=== PATIENT | female | born 1985 | race Caucasian/White ===

== ENCOUNTER → 2016-05-27 | Outpatient (CLI) | payer BC ==
[~2016-05-27] MED LIST: IBUP-1050 PO; IBUP1CAP PO; OXYC-57 PO
== END | disposition home or self-care (01) ==
LOC: C.LAB 15:30
PROVIDERS: ATTEND Obstetrics & Gynecology
DX: Z33.1 Pregnant state, incidental (principal)

== ENCOUNTER 2016-05-29 12:43 | Emergency (ER) | payer BC ==
[~2016-05-29] VITALS: Ht 175.3 cm; Wt 83.1 kg
[2016-05-29 13:02] VITALS: Ht 175.3 cm; Wt 83.1 kg
[2016-05-29] MEDS ORDERED: SODIUM CHLORIDE 0.9% 1000ML 1,000 ML IV ONE (13:18)
[2016-05-29] MEDS ORDERED: SODIUM CHLORIDE 0.9% 1000ML 1,000 ML IV STA (13:18)
--- NOTE | 2016-05-29 13:31 | EMERGENCY ROOM VISIT NOTE ---
History Report prepared by Hunter: Mike Yi Under the Supervision of: Dr. Familia Castillo M.D. First contact with patient: 13:09 Chief Complaint: REFERRED BY DOCTOR Stated Complaint: POSS ECTOPIC , SENT BY DR ESTEVEZ History of Present Illness The patient is a 31 year old female who presents to the Emergency Room with complaints of possible ectopic . The patient initially had some spotting which has now resolved. She has not passed any clots or tissues. She no longer has any bleeding. Her HCG numbers have been reducing. The patient is unsure about how far along she is. Last week, she discovered that she was . The patient has a normal menstrual period on May 14. She was evaluated at her OB-GOLD MINER's office today where she received an exam and an ultrasound. On ultrasound, there was nothing seen in the uterus. There was an abnormal finding concerning the left ovary but the patient is not unsure about the exact results. She currently denies any pain. She denies any trauma or injury, abdominal pain, vomiting, diarrhea, or any other complaints. The patient 's blood type is B negative. The patient is not on any blood thinners. Source of History: patient Position: other (global) Symptom Intensity: No pain currently Quality: other (possible ectopic ) Associated Symptoms: No abdominal pain, No diarrhea, No vomiting Review of Systems See HPI for pertinent positives & negatives. A total of 10 systems reviewed and were otherwise negative. Past Medical & Surgical Medical Problems: (1) Gestational diabetes (2) contractions (3) Spontaneous rupture of amiotic membranes Surgical Problems: (1) History of cholecystectomy Old medical records were reviewed. Nurse's notes were reviewed and I agree with. Family History Diabetes mellitus FH: heart disease FH: lung disease FHx: cancer FHx: gallbladder disease Hypertension Kidney disease Kidney stones Social History Smoking Status: Never Smoker Alcohol Use: none Marital Status: Housing Status: lives with family Current/Historical Medications No Active Prescriptions or Reported Meds Allergies Coded Allergies: No Known Allergies (Verified , 05/29/16) Physical Exam Vital Signs Date Time Temp Pulse Resp B/P Pulse Ox O2 Delivery O2 Flow Rate FiO2 05/29/16 16:00 37 83 18 140/78 99 Room Air 05/29/16 15:15 84 16 108/73 99 Room Air 05/29/16 13:02 37.1 99 18 129/66 97 Room Air Physical Exam General: Non-ill appearing, young female, in no acute distress. HEENT: Normal cephalic atraumatic. Pupils are equal round and reactive to light. Extraocular movements are intact. Oropharynx is pink with moist mucous membranes. No swelling of the mouth lips or tongue. Neck: Supple with a midline trachea. No meningeal signs or stiffness, no JVD or bruits. No Stridor. Chest: Clear to auscultation bilaterally. No wheezes or rhonchi. No increased work of breathing. Heart: regular rate and rhythm. Abdomen: Soft nontender, nondistended without rebound guarding or rigidity. Extremities: No cyanosis clubbing or edema. No calf tenderness or assymetry Spine/Back. Non tender to palpation. No CVA tenderness Skin: Good turgor without rashes. Neurologic exam: Cranial nerves two through 12 are intact. Motor and sensation are intact and symmetrical throughout. Medical Decision & Procedures Laboratory Results 05/29/16 13:46 Red Blood Count 4.67, Mean Corpuscular Volume 85.2, Mean Corpuscular Hemoglobin 29.6, Mean Corpuscular Hemoglobin Concent 34.7, Mean Platelet Volume 9.7, Neutrophils (%) (Auto) 60.1, Lymphocytes (%) (Auto) 26.4, Monocytes (%) (Auto) 9.7, Eosinophils (%) (Auto) 3.0, Basophils (%) (Auto) 0.4, Neutrophils # (Auto) 6.51, Lymphocytes # (Auto) 2.86, Monocytes # (Auto) 1.05, Eosinophils # (Auto) 0.32, Basophils # (Auto) 0.04 05/29/16 13:46 Test 05/29/16 13:46 White Blood Count 10.82 K/uL (4.8-10.8) Red Blood Count 4.67 M/uL (4.2-5.4) Hemoglobin 13.8 g/dL (12.0-16.0) Hematocrit 39.8 % (37-47) Mean Corpuscular Volume 85.2 fL (80-100) Mean Corpuscular Hemoglobin 29.6 pg (25-34) Mean Corpuscular Hemoglobin Concent 34.7 g/dl (32-36) Platelet Count 231 K/uL (130-400) Mean Platelet Volume 9.7 fL (7.4-10.4) Neutrophils (%) (Auto) 60.1 % Lymphocytes (%) (Auto) 26.4 % Monocytes (%) (Auto) 9.7 % Eosinophils (%) (Auto) 3.0 % Basophils (%) (Auto) 0.4 % Neutrophils # (Auto) 6.51 K/uL (1.4-6.5) Lymphocytes # (Auto) 2.86 K/uL (1.2-3.4) Monocytes # (Auto) 1.05 K/uL (0.11-0.59) Eosinophils # (Auto) 0.32 K/uL (0-0.5) Basophils # (Auto) 0.04 K/uL (0-0.2) RDW Standard Deviation 40.8 fL (36.4-46.3) RDW Coefficient of Variation 13.3 % (11.5-14.5) Immature Granulocyte % (Auto) 0.4 % Immature Granulocyte # (Auto) 0.04 K/uL (0.00-0.02) Anion Gap 9.0 mmol/L (3-11) Est Creatinine Clear Calc Drug Dose 115.6 ml/min Estimated GFR () 111.3 Estimated GFR (Non- 96.0 BUN/Creatinine Ratio 16.3 (10-20) Calcium Level 8.8 mg/dl (8.5-10.1) Human Chorionic Gonadotropin, Quant 348 mIU/mL Laboratory studies as stated above per my review. Medications Administered Medications (Trade) Dose Ordered Sig/Navi Route Start Time Stop Time Status Last Admin Dose Admin Sodium Chloride 1,000 ml @ 999 mls/hr Q1H1M STAT IV 05/29/16 13:18 05/29/16 14:18 DC 05/29/16 13:55 999 MLS/HR Sodium Chloride (Nss 1000ml) 1,000 ml @ 200 mls/hr Q5H ONCE IV 05/29/16 13:18 05/29/16 18:17 05/29/16 15:08 200 MLS/HR ED Course 1309: Past medical records reviewed. The patient was evaluated in room A02, and a complete history and physical examination were performed. 1318: Sodium Chloride 1000 ml @ 200 mls/hr IV, Sodium Chloride 1000 ml @ 999 mls /hr IV 1352: I reevaluated the patient who is resting comfortably. 1423: Upon reevaluation, the patient is doing well. I discussed the results and treatment plan with the patient. She verbalized agreement of the treatment plan. I discussed the patient's case with Dr. Liu, OB-[facility]OLD [facility]ER with [facility]. She will be evaluated for further management. Medical Decision Differential diagnosis includes but is not limited to ectopic , anemia , miscarriage, electrolyte or metabolic abnormality. This patient comes in as described above. She was sent over from her DATABASE REPORT WRITER office for concern for possible ectopic . Her Quant HCG on Saturday was 700 which was apparently down from 1999. They did ultrasound the office and did not see any intrauterine products. There is a left adnexal mass and fluid was concern for possible ectopic. They sent her here for repeat labs and consult OB here for possible surgery. The patient looks well and has been hemodymically stable on exam. IV access established was typed and crossed and multiple blood testing was obtained. She was reassessed frequently.. She has no significant anemia. No electrode or metabolic abnormalities. Her quantitative hCG is down to 345. She does tell me that she is Rh- and may ultimately need RhoGAM when her blood work comes back. I did consult Dr. Liu. who did come see her in the ER and is going to take her to the operating room for a presumed ectopic Consults Time Called: [id number] Consulting Physician: Dr. Liu, OB[facility]OLD [facility]ER with [facility] Returned Call: [phone] I discussed the patient's case with Dr. Liu, OB-GOLD [facility]ER with [facility]. Impression Primary Impression: Ectopic Scribe Attestation The scribe's documentation has been prepared under my direction and personally reviewed by me in its entirety. I confirm that the note above accurately reflects all work, treatment, procedures, and medical decision making performed by me. Departure Information Dispostion Other (OB-GOLD MINER) Prescriptions No Active Prescriptions or Reported Meds Referrals Canan. Dash MD (PCP) Patient Instructions My [facility]
[2016-05-29 13:58] LABS: BASO % 0.4 %; BASO ABS # 0.04 K/uL (0-0.2); COMPLETE YES; HEMATOCRIT 39.8 % (37-47); IG% 0.4 %; LYMPH % 26.4 %; LYMPH ABS # 2.86 K/uL (1.2-3.4); MEAN CELL VOLUME 85.2 fL (80-100); MEAN CORPUSCULAR HEMOGLOBIN 29.6 pg (25-34); MEAN CORPUSCULAR HGB CONC 34.7 g/dl (32-36); MEAN PLATELET VOLUME 9.7 fL (7.4-10.4); MONO % 9.7 %; NEUT % 60.1 %; PLATELET COUNT 231 K/uL (130-400); RED BLOOD COUNT 4.67 M/uL (4.2-5.4); WHITE BLOOD COUNT 10.82 K/uL (4.8-10.8)
[2016-05-29 14:18] LABS: BUN/CREATININE RATIO 16.3 (10-20); CALCIUM 8.8 mg/dl (8.5-10.1); CREATININE 0.82 mg/dl (0.60-1.20); POTASSIUM 3.8 mmol/L (3.5-5.1)
[2016-05-29 15:15] VITALS: O2SAT 99
[2016-05-29] MEDS ORDERED: SUCCINYLCHOLINE CHLORIDE 20 MG/ML 10 ML VIAL IV ONE (15:42)
[2016-05-29] MEDS ORDERED: PHENYLEPHRINE HCL INJ 10 MG/ML VIAL ONE (15:42)
[2016-05-29] MEDS ORDERED: GLYCOPYRROLATE INJ 0.2 MG/ML VIAL ONE (15:42)
[2016-05-29] MEDS ORDERED: ONDANSETRON INJ 2 MG/ML 2 ML VIAL ONE ×2 (15:42→20:14)
[2016-05-29] MEDS ORDERED: DEXAMETHASONE SOD INJ 4 MG/ML VIAL ONE (15:42)
[2016-05-29] MEDS ORDERED: EpHEDrine SULFATE INJ 50 MG/ML AMP ONE (15:42)
[2016-05-29] MEDS ORDERED: LIDOCAINE HCL 2% 2 ML VIAL (20MG/ML) ONE ×2 (15:42→17:56)
[2016-05-29] MEDS ORDERED: PROPOFOL IV EMULSION 10 MG/ML 20 ML VIAL IV ONE (15:42)
[2016-05-29] MEDS ORDERED: ROCURONIUM BROMIDE 10 MG/ML 5 ML VIAL ONE (15:42)
[2016-05-29] MEDS ORDERED: NEOSTIGMINE METHYLSULFATE 5 MG/5 ML SYR ONE (15:42)
[2016-05-29] MEDS ORDERED: MIDAZOLAM HCL 1 MG/ML 2ML VIAL ONE (15:43)
[2016-05-29] MEDS ORDERED: FENTANYL CITRATE INJ 50 MCG/1 ML 2 ML VIAL ONE ×3 (15:43→18:28)
--- NOTE | 2016-05-29 15:54 | HISTORY & PHYSICAL EXAMINATION ---
DATE OF ADMISSION: 05/29/2016 HISTORY OF PRESENT ILLNESS: The patient is a 31-year-old , last menstrual period was May 14. The patient was seen in the [facility] office where she was scheduled to have an IUD placement for contraception. test was positive. The patient was therefore followed with serial HCGs. Her titers were rising and suddenly began to decline but she had abdominal pain and bleeding so an ultrasound was done today as a followup and the ultrasound in the office showed a 4.1 x 2.7 x 3.6 cm heterogeneous structure adjacent to the left ovary and suspicious for ectopic . There is suspected fluid in the pelvis as well. The patient complains of very mild abdominal discomfort. She did have some vaginal bleeding over the weekend which has improved is not present this morning. She has no shortness of breath, no chills, no diarrhea, no shoulder pain. The patient was sent to the Emergency Room for evaluation. She had a discussion with Dr. Montes who saw her this morning because of the suspected blood in the pelvis, methotrexate is not recommended. She had agreed to undergo laparoscopy for removal of suspected ectopic in the left adnexa. On arrival at the Emergency Room, the patient is stable. She had no shortness of breath, no chills, no fever. I have discussed findings with patient. We discussed medical treatment as well as surgical treatment once again because of suspected fluid in the pelvis. We do not at this moment think that she is a candidate for methotrexate. The patient has agreed to proceed with laparoscopy. PAST MEDICAL HISTORY: The patient has a history of cholecystitis. PAST SURGICAL HISTORY: The patient had a cholecystectomy. ALLERGIES: No known drug allergies. SOCIAL HISTORY: The patient denies tobacco, drug or alcohol use. FAMILY HISTORY: Noncontributory. PHYSICAL EXAMINATION: GENERAL: Well-developed, well-nourished white female in no acute distress. HEART: S1, S2, regular rhythm and rate. LUNGS: Clear to auscultation bilaterally. ABDOMEN: Slightly tender on the left lower abdomen. There is no guarding, no rebound. PELVIC: Unremarkable. There is some fullness in the left adnexa. There is no blood seen in the vagina vault. No cervical motion tenderness. The patient, however, is uncomfortable during pelvic exam. EXTREMITIES: No cyanosis, clubbing or edema. ASSESSMENT AND PLAN: A 31-year-old with a suspected ectopic seen on ultrasound. We discussed medical therapy as well as surgery. The patient has agreed to proceed with operative laparoscopy. Surgery to include removal of ectopic, possible salpingo oopherectomy,cystoscopy. We discussed risks of surgery including infection, bleeding, damage to adjacent organs or structures such as the ureter, the bowel, the bladder. Consent is signed and we will proceed with surgery. GUNJAN
[2016-05-29] MEDS ORDERED: LACTATED RINGER'S 1000ML 1,000 ML IV PRN (16:17)
[2016-05-29] MEDS ORDERED: ACETAMINOPHEN 1000 MG/100 ML IV IV ONE (16:20)
[2016-05-29] MEDS ORDERED: LACTATED RINGER'S 1000ML 1,000 ML IV SCH (16:22)
[2016-05-29] MEDS ORDERED: DiphenhydrAMINE HCL 50 MG/ML VIAL IV PRN (16:30)
[2016-05-29] MEDS ORDERED: FENTANYL CITRATE INJ 50 MCG/1 ML 2 ML VIAL IV PRN (16:30)
[2016-05-29] MEDS ORDERED: ONDANSETRON INJ 2 MG/ML 2 ML VIAL IV PRN ×2 (16:30→20:00)
[2016-05-29] MEDS ORDERED: MoRPHine SULFATE 10 MG/ML CARP/VIAL IV PRN (16:30)
[2016-05-29] MEDS ORDERED: METOCLOPRAMIDE HCL INJ 5 MG/ML 2 ML VIAL IV PRN ×2 (16:30→20:00)
[2016-05-29] MEDS ORDERED: ESMOLOL HCL 10 MG/ML 10 ML VIAL ONE (18:28)
[2016-05-29] MEDS ORDERED: METHYLENE BLUE 1% 10 ML VIAL ONE (19:00)
[2016-05-29] MEDS ORDERED: BUPIVACAINE/EPINEPHRINE 0.5% MPF 1:200,000 30 ML VIAL INJ ONE (19:31)
[2016-05-29] MEDS ORDERED: SODIUM CHLORIDE 0.9% 1000ML 1,000 ML IV SCH (19:56)
[2016-05-29] MEDS ORDERED: OXYCODONE/ACETAMINOPHEN 5-325 TAB PO PRN ×2 (20:00)
[2016-05-29] MEDS ORDERED: OXYC-57 PO (20:00)
[2016-05-29] MEDS ORDERED: IBUPROFEN 600 MG TAB PO PRN (20:00)
[2016-05-29] MEDS ORDERED: KETOROLAC TROMETHAMINE 30 MG/ML VIAL IV. PRN (20:00)
--- NOTE | 2016-05-29 20:05 | Discharge Instructions ---
Discharge Instructions Admission Reason for Admission: Poss Ectopic , Sent By Dr Montes Discharge Discharge Diagnosis / Problem: same Discharge Goals Goal(s): Routine recovery after surgery Activity Recommendations Activity Limitations: as noted below Lifting Limitations: gradually increase as tolerated Exercise/Sports Limitations: until after follow-up appointment May Resume Sexual Activity: after follow-up appointment Shower/Bathe: keep incision dry Driving or Machine Use: . Instructions / Follow-Up Instructions / Follow-Up SPECIAL CARE INSTRUCTIONS: * Check temperature twice daily for one week. Report any elevation over 100.4 degrees Fahrenheit (38.0 degrees Celsius). * Call office in the next few days for return appointment. * You may experience some vaginal spotting and/or bleeding, this is normal for one or two weeks and should not alarm you. * Post-operative discomfort may consist of a sore throat, a "bloated" feeling and pain in the shoulders. These are normal symptoms which usually only last for two or three days. FOLLOW UP VISIT: Keep any scheduled doctor appointments. Current Hospital Diet Patient's current hospital diet: Discharge Diet Recommended Diet: Regular Diet Procedures Procedures Performed: Operative laparoscopy, left salingoopherectomy, removal of products of conception, cystoscopy Pending Studies Studies pending at discharge: no Medical Emergencies . Who to Call and When: Medical Emergencies: If at any time you feel your situation is an emergency, please call 911 immediately. . Non-Emergent Contact Non-Emergency issues call your: Specialist Call Non-Emergent contact if: you have a fever, your pain is not controlled, wound has increased drainage . . "Provider Documentation" section prepared by Serafin Liu. VTE Core Measure Inpt VTE Proph given/why not?: Treatment not indicated
--- NOTE | 2016-05-29 20:15 | Anesthesiology Progress Note ---
Anesthesia Post Op Note Date & Time May 29, 2016 at 20:14 Vital Signs Pain Intensity: 0 Vital Signs Past 12 Hours Date Time Temp Pulse Resp B/P Pulse Ox O2 Delivery O2 Flow Rate FiO2 05/29/16 20:05 69 16 109/73 100 Mask 10 05/29/16 19:56 36.4 84 16 112/76 96 Mask 10 05/29/16 16:00 37 83 18 140/78 99 Room Air 05/29/16 15:15 84 16 108/73 99 Room Air 05/29/16 13:02 37.1 99 18 129/66 97 Room Air Notes Mental Status: alert / awake / arousable, participated in evaluation Pt Amnestic to Procedure: Yes Nausea / Vomiting: adequately controlled Pain: adequately controlled Airway Patency, RR, SpO2: stable & adequate BP & HR: stable & adequate Hydration State: stable & adequate Anesthetic Complications: no major complications apparent Pt doing well.
--- NOTE | 2016-05-29 20:17 | [facility] Operative Report ---
Operative Report Operative Date May 29, 2016. Pre-Operative Diagnosis Ectopic Post-Operative Diagnosis Same as preoperative diagnosis Procedure(s) Performed Operative laparoscopy, left salingoopherectomy, removal of products of conception, cystoscopy Surgeon Dr. Liu Practical Nursing Instructor Surgeon(s) None Estimated Blood Loss 40ml Findings dictated Fluids (cc crystalloids) 500 Specimens a. product of conception b. left tube and ovary Drains none Complication(s) None Disposition Recovery Room / PACU I attest to the content of the Intraoperative Record and any orders documented therein. Any exceptions are noted below.
[2016-05-29] MEDS ORDERED: PERCOCET HOME PACK PO ONE (20:30)
[2016-05-29] MEDS: METOCLOPRAMIDE HCL INJ 5 MG/ML 2 ML VIAL ONE ×2 (20:30→20:56)
[2016-05-29 20:45] VITALS: BP 106/59; TEMP 36.7; O2SAT 99
[2016-05-29] MEDS ORDERED: KETOROLAC TROMETHAMINE 30 MG/ML VIAL ONE (21:00)
[2016-05-29 21:15] VITALS: BP 113/35; PULSE 68; TEMP 36.7; O2SAT 95
[2016-05-29] MEDS ORDERED: IV FLUIDS COMPLETED PRN (21:30)
[2016-05-29 21:39] VITALS: BP 108/59; PULSE 68; TEMP 36.6; O2SAT 97
--- NOTE | 2016-05-30 07:05 | OPERATIVE REPORT ---
DATE OF OPERATION: 05/29/2016 INDICATION FOR PROCEDURE: This is a 31-year-old with suspected ectopic seen in the office and sent to the Emergency Room. PREOPERATIVE DIAGNOSES: Suspected ectopic . POSTOPERATIVE DIAGNOSIS: Same. PROCEDURE: 1. Operative laparoscopy. 2. Evacuation of hemoperitoneum. 3. Removal of products of conception from the abdomen. 4. Left salpingo-oophorectomy. SURGEON: Serafin Liu MD LOT PORTER: LAINE Sevilla ESTIMATED BLOOD LOSS: 40 mL FINDINGS: Normal female escutcheon. The uterus was about 6-8 weeks' size. There was hemoperitoneum in the abdomen. The ectopic was on the left ovary. The left and right fallopian tubes appeared grossly normal. There were signs of endometriosis in the posterior cul-de-sac. The rest of the abdominal exam was unremarkable. The right adnexa appeared completely normal. SPECIMEN: 1. Products of conception. 2. Left tube and ovary. DRAINS: None. COMPLICATIONS: None. DISPOSITION: Stable to recovery room. IV FLUIDS: 500 Ml URINE: 50 mL clear urine at the end of the procedure. DESCRIPTION OF PROCEDURE: The patient was taken to the operating room where she was prepped and draped in normal sterile fashion. Timeout was called. A heavy weighted speculum was placed in the vagina. A Abdalla retractor was used to retract the anterior part of the vagina. Single tooth tenaculum was used to grab the anterior part of the cervix. A [employer] uterine manipulator was placed in the uterus to help manipulate the uterus during laparoscopy. Knox catheter was placed in the bladder. Attention was paid to the abdominal part of the procedure where an infraumbilical incision was made with a scalpel and carried down to the fascia. A Veress needle was placed through the fascia into the abdomen at a 45-degree angle while tenting up the abdomen. Intra-abdominal placement was confirmed with a water filled syringe. The abdomen was insufflated with CO2 gas to 3 liters. The Veress needle was removed. Laparoscopic trocar was placed into the abdomen at a 45-degree angle while tenting up the abdomen. This was done under direct visualization. A nonbladed trocar was used. Once inside the abdomen, the findings were as dictated above. The laparoscope was repositioned and 2 accessory laparoscopes were placed in the lower right and left quadrants respectively. These were done under direct visualization as well. The patient was placed in Trendelenburg position. Copious amount of irrigation was used to irrigate the abdomen while hemoperitoneum was evacuated. Specimen which appeared to be the ectopic was found in the deep cul-de-sac which was removed with an Endobag. The left tube and ovary was transected using the LigaSure device. There was good hemostasis at end of the procedure. More irrigation was used to irrigate the abdomen. The patient was given Methergine blue dye and cystoscopy was performed without difficulty. Both ureteral orifices were identified. There was blue urine seen jetting out of both orifices. The cystoscope was removed. Attention was paid back to the abdominal part of the operation where the 3 incision sites were closed in 2 layers, fascias were closed with 0 Vicryl and 2-0 Vicryl was used to close the subQ spaces and the skin was closed with 4-0 Monocryl. All instruments were removed from the vagina and abdomen and accounted for x2 including sponges and needles. The patient is sent to recovery in stable condition. I attest to the content of the Intraoperative Record and any orders documented therein. Any exceptio ns are noted below.
--- NOTE | 2016-05-30 07:21 | DISCHARGE SUMMARY ---
CHIEF COMPLAINT: Ectopic . HISTORY OF PRESENT ILLNESS: This is a 31-year-old G2, P1 who was found to be and upon evaluation had ectopic . She was seen in the office and sent through the ER to undergo an operative laparoscopy and left salpingo-oophorectomy. Surgery was unremarkable. Details of surgery is in the surgical note. The patient underwent surgery with cystoscopy and was discharged home the same day. PAST MEDICAL HISTORY: History of gallbladder disease. PAST SURGICAL HISTORY: History of cholecystectomy. SOCIAL HISTORY: The patient denies tobacco, drug or alcohol use. FAMILY HISTORY: Noncontributory. ALLERGIES: None. REVIEW OF SYSTEMS: Negative except as dictated in the HPI. PHYSICAL EXAMINATION: GENERAL: Well-developed, well-nourished white female in no acute distress. HEART: S1, S2, regular rhythm and rate. LUNGS: Clear to auscultation bilaterally. ABDOMEN: Nontender, nondistended. Incision clean, dry and intact. EXTREMITIES: No cyanosis, clubbing or edema. Labs and vitals at the time of discharge are stable. CONDITION ON DISCHARGE: Stable. OPERATIONS: Operative laparoscopy, left salpingo-oophorectomy, removal of products of conception from the abdomen. Cystoscopy. DISCHARGE DIAGNOSIS: Same. PLAN ON DISCHARGE: The patient is discharged home with instructions, medications and followup appointment.
== END 2016-05-29 15:50 | disposition still patient (30) ==
LOC: C.EDB 12:44 → C.EDA 15:50 → CANBEDREQ 20:04
DX: O00.20 Ovarian pregnancy without intrauterine pregnancy (principal); K66.8 Other specified disorders of peritoneum

== ENCOUNTER 2018-11-20 07:10 | Inpatient (IN) ==
[2018-11-20] MEDS ORDERED: OXYTOCIN 30 UNITS/500 ML BAG IV PRN ×3 (08:09→18:43)
--- NOTE | 2018-11-20 08:17 | History & Physical Report ---
Date of Service November 20, 2018 Assessment & Plan (1) Amniotic fluid leakin yo at 38.3 wks with SROM, not in labor VSS Afebrile FHR reassuring GBS negative Discussed expectant management vs pitocin induction/ augmentation to decrease the risk of intraamniotic infection She decided on for Pitocin All questions were answered (2) Gestational diabetes: History of Present Illness Chief Complaint: Leaking fluids Primary Care Provider: NO PCP Patient is a 33 yo at 38.3 wks who woke up at 0530 am with leaking fluids She has been leaking clear fuilds since then, confirmed with Amnisure Ctxs started after, not regular No VB/ Fever/ chills/ CP/SOB Her has been complicated by 1) GDMA2 2)Rh negative 3) Not immune to rubella Allergies Allergy/AdvReac Type Severity Reaction Status Date / Time No Known Allergies Allergy Verified 10/07/18 16:26 Home Medications Home Medications Medication Instructions Recorded Confirmed Type Plus 1 tab PO DAILY 07/02/18 11/20/18 History ferrous sulfate [iron] 325 mg PO 3XWK 10/07/18 11/20/18 History glyburide 1 mg PO ONCE HS 10/07/18 11/20/18 History omeprazole magnesium [Prilosec OTC] 20 mg PO DAILY 11/13/18 11/20/18 History Patient History Medical History Ectopic ovary Ectopic SAB x2 with D&C in 2011 Ectopic , tubal Gestational diabetes Inflammation gall bladder removed Migraine Surgical History History of dilation and curettage x2 History of unilateral fallopian tube excision Hx of removal of ovary Hx of cholecystectomy Social History Preferred Language: [place] Communication Ability: Effective Beliefs That Will Affect Care: None marital status: Current Living Situation: Spouse and Family Feels Safe at Home: Yes Safety Concerns: Feels Safe At This Time Smoking Status: Current every day smoker Tobacco Type: cigarettes Cigarettes Per Day: 10 Do You Dip or Chew Tobacco: No Second Hand Exposure: Yes Hx Alcohol Use: No Hx Substance Use: No OB History 2FT 2 SAB 1 ectopic Review of Systems All systems reviewed & are unremarkable except as noted in HPI & below Physical Exam Constitutional: WD/WN, vitals as above well developed and well nourished Comfortable Cardiovascular: RRR, no murmur, no edema Rate/Rhythm: regular rate and regular rhythm Heart Sounds: normal S1 and normal S2 Gastrointestinal (Abdomen): normal bowel sounds, soft, nontender, no hepatosplenomegaly Soft, NT, Gravid Musculoskeletal: no cyanosis or clubbing, extremities motor strength 5/5 Ext NT, no eema Genitourinary: Cervix: 3-4 cm/ 40%/ -3, ballotable Results & Data Vital Signs (Past 12 Hours) Vital Signs Temp Resp 11/20/18 07:37 37.3 C 18 11/20/18 07:27 37.3 C 18 Monitoring External Monitor Categ I Tocodynamometer Irregular ctxs q 2-4 min
[2018-11-20 08:24] LABS: Hematocrit (blood only) 32.8 % (37-47); Hemoglobin 11.3 g/dL (12.0-16.0); Mean Corpuscular Volume 85.9 fL (80-100); Mean Platelet Volume 10.5 fL (7.4-10.4); Platelet Count 304 K/uL (130-400); RDW Coefficient of Variation 13.5 % (11.5-14.5); Red Blood Count 3.82 M/uL (4.2-5.4); White Blood Count 16.42 K/uL (4.8-10.8)
[2018-11-20 08:28] LABS: Mean Corpuscular Hgb Conc 34.5 g/dL (32-36)
[2018-11-20] MEDS: LACTATED RINGER'S 1,000 ML IV PRN ×3 (08:42→13:13)
[2018-11-20 09:28] LABS: Albumin Level 2.7 gm/dl (3.4-5.0); BUN Creatinine Ratio 12.1 (10-20); Calcium 9.4 mg/dl (8.5-10.1); Creatinine Clr Calc Pharmacy 128.9 ml/min; Est GFR (African American) 118.4; Est GFR (Non-African American) 102.2; Potassium 3.9 mmol/L (3.5-5.1)
[2018-11-20 09:31] LABS: Albumin Globulin Ratio 0.6 (0.9-2); Bilirubin,Total 0.3 mg/dl (0.2-1); Globulin 4.2 gm/dl (2.5-4.0); Total Protein 6.9 gm/dl (6.4-8.2)
[2018-11-20] MEDS ORDERED: fentaNYL citrate 100 MCG/2 ML VIAL ONE ×2 (09:32→17:37)
[2018-11-20] MEDS ORDERED: fentaNYL 2MCG/ML ROPIV 1.25MG/ML 100 ML BAG EPI ONE (09:32)
[2018-11-20] MEDS ORDERED: ePHEDrine sulfate 50 MG/ML AMP ONE (09:32)
[2018-11-20] MEDS ORDERED: BUPIVACAINE 0.25% 30 ML VIAL ONE (09:32)
--- NOTE | 2018-11-20 10:16 | Anesthesiology Consultation ---
Date of Service November 20, 2018 Assessment & Plan Chart Review Chart Review: Acceptable Risk for Surgery Consults Requested none History Height/Weight Height: 5 ft 9 in Weight: 95.254 kg Allergies Allergy/AdvReac Type Severity Reaction Status Date / Time No Known Allergies Allergy Verified 10/07/18 16:26 Medications Home Medications Medication Instructions Recorded Confirmed Last Taken Plus 1 tab PO DAILY 07/02/18 11/20/18 11/14/18 ferrous sulfate [iron] 325 mg PO 3XWK 10/07/18 11/20/18 11/14/18 glyburide 1 mg PO ONCE HS 10/07/18 11/20/18 11/19/18 omeprazole magnesium [Prilosec OTC] 20 mg PO DAILY 11/13/18 11/20/18 11/19/18 Active Medications Generic Name Dose Route Start Last Admin Trade Name Freq PRN Reason Stop Dose Admin Lactated Ringer's 1,000 mls @ 150 mls/hr 11/20/18 08:30 11/20/18 10:01 Lr IV 11/22/18 08:29 150 mls/hr .Q6H40M PRN Administration L&D Protocol Protocol Past Medical History Medical History Ectopic ovary Ectopic SAB x2 with D&C in 2011 Ectopic , tubal Gestational diabetes Inflammation gall bladder removed Migraine Past Family History Family History Mother Diabetes Father Hypertension Grandmother (Maternal) Hypertension Grandmother (Paternal) Hypertension Grandfather (Paternal) Stroke Past Surgical History Surgical History History of dilation and curettage x2 History of unilateral fallopian tube excision Hx of removal of ovary Hx of cholecystectomy Social History Smoking Status: Current every day smoker tobacco type: cigarettes Smoking cigarettes per day: 10 Do You Dip or Chew Tobacco: No Hx Alcohol Use: No Hx Substance Use: No substance use type: does not use Physical Exam Vital Signs Last Vital Signs Temp 37.1 C 11/20/18 09:30 Pulse 70 11/20/18 10:12 Resp 18 11/20/18 09:47 BP 122/68 11/20/18 10:10 Pulse Ox 100 11/20/18 10:12 Testing Laboratory Results 11/20/18 08:15 11/20/18 08:35 11/20/18 08:44 POC Glucose 90
[2018-11-20] MEDS ORDERED: NALBUPHINE HCL INJ 10 MG/ML AMP IV PRN (10:18)
[2018-11-20] MEDS ORDERED: DiphenhydrAMINE HCL 50 MG/ML VIAL IV PRN (10:18)
[2018-11-20] MEDS ORDERED: fentaNYL 2MCG/ML ROPIV 1.25MG/ML 100 ML BAG EPI PRN (10:18)
[2018-11-20] MEDS ORDERED: NALOXONE HCL 0.4 MG/1 ML VIAL/CARP IV PRN (10:18)
[2018-11-20] MEDS ORDERED: NALOXONE HCL 1 MG in SODIUM CHLORIDE 0.9% 1000ML 1,000 ML IV PRN (10:18)
[2018-11-20] MEDS ORDERED: ePHEDrine sulfate 50 MG/ML AMP IV PRN (10:18)
[2018-11-20] MEDS ORDERED: ONDANSETRON INJ 2 MG/ML 2 ML VIAL IV PRN (10:48)
--- NOTE | 2018-11-20 12:38 | Obstetrical Progress Note ---
Date of Service November 20, 2018 Subjective Patient is reevaluated She is comfortable with epidural VSS Afebrile VE: 4-5 cm/ 40-50%/ -3, ballotable FHR 140's, with moderate variability and accel after exam Depew ctx q 2-4 min Plan to monitor, increase pitocin and then AROM when able Results & Data Vital Signs (Past 12 Hours) Vital Signs Temp Pulse Resp BP Pulse Ox 11/20/18 12:32 63 100 11/20/18 12:27 64 100 11/20/18 12:22 61 108/63 100 11/20/18 12:17 66 100 11/20/18 12:12 65 100 11/20/18 12:07 64 114/70 100 11/20/18 12:02 70 100 11/20/18 12:00 18 11/20/18 11:57 66 100 11/20/18 11:53 68 114/68 11/20/18 11:52 62 100 11/20/18 11:47 65 100 11/20/18 11:42 66 100 11/20/18 11:37 60 111/65 100 11/20/18 11:32 73 100 11/20/18 11:31 37.0 C 11/20/18 11:30 18 11/20/18 11:27 59 L 100 11/20/18 11:23 66 117/69 11/20/18 11:22 64 100 11/20/18 11:17 59 L 100 11/20/18 11:12 64 100 11/20/18 11:07 63 112/65 98 11/20/18 11:04 60 106/65 11/20/18 11:02 61 100 11/20/18 11:01 62 18 103/63 11/20/18 10:57 57 L 100 11/20/18 10:56 54 L 93/54 L 11/20/18 10:53 54 L 90/55 L 11/20/18 10:52 59 L 86/47 L 100 11/20/18 10:51 52 L 86/51 L 11/20/18 10:50 18 11/20/18 10:47 58 L 98 11/20/18 10:42 65 100 11/20/18 10:40 18 11/20/18 10:37 64 125/73 100 11/20/18 10:32 75 100 11/20/18 10:30 18 11/20/18 10:27 68 100 11/20/18 10:25 18 11/20/18 10:22 83 99 11/20/18 10:21 68 117/74 11/20/18 10:18 18 11/20/18 10:17 70 117/67 100 11/20/18 10:15 18 11/20/18 10:12 70 100 11/20/18 10:10 73 18 122/68 11/20/18 10:08 72 117/68 11/20/18 10:07 67 100 11/20/18 10:06 71 120/69 11/20/18 10:05 18 11/20/18 10:04 68 123/71 11/20/18 10:02 72 127/84 100 11/20/18 10:00 74 126/83 11/20/18 09:58 71 132/82 11/20/18 09:57 72 133/84 100 11/20/18 09:55 69 131/87 11/20/18 09:52 74 100 11/20/18 09:48 79 92 11/20/18 09:47 69 18 100 11/20/18 09:46 72 128/81 11/20/18 09:30 37.1 C 18 11/20/18 08:56 18 11/20/18 08:30 18 11/20/18 07:37 37.3 C 18 11/20/18 07:27 37.3 C 18
--- NOTE | 2018-11-20 14:53 | Obstetrical Progress Note ---
Date of Service November 20, 2018 Subjective Patient is reevaluated FHR had been having mild variable/ some late decels with spontaneous recovery Patient was feeling pressure VE; 5-6/ 50%/ -3, bulging bag, AROM'ed abundant clear fluid came FHR 150's no decels [place] ctxxs q2-3 min Continue to monitor closely Results & Data Vital Signs (Past 12 Hours) Vital Signs Temp Pulse Resp BP Pulse Ox 11/20/18 14:47 66 100 11/20/18 14:42 80 99 11/20/18 14:38 69 114/69 11/20/18 14:37 80 100 11/20/18 14:32 60 100 11/20/18 14:30 18 11/20/18 14:27 66 100 11/20/18 14:22 63 116/65 100 11/20/18 14:17 69 100 11/20/18 14:12 66 100 11/20/18 14:07 72 113/73 100 11/20/18 14:02 61 99 11/20/18 14:00 18 11/20/18 13:57 72 99 11/20/18 13:52 69 113/70 99 11/20/18 13:47 65 98 11/20/18 13:42 64 98 11/20/18 13:37 73 104/60 98 11/20/18 13:32 74 98 11/20/18 13:30 37.1 C 18 11/20/18 13:27 58 L 98 11/20/18 13:24 57 L 107/60 11/20/18 13:22 58 L 98 11/20/18 13:17 68 99 11/20/18 13:12 67 99 11/20/18 13:07 71 110/63 99 11/20/18 13:02 72 100 11/20/18 13:00 18 11/20/18 12:57 67 100 11/20/18 12:52 61 117/67 100 11/20/18 12:47 59 L 98 11/20/18 12:42 60 100 11/20/18 12:38 58 L 118/64 11/20/18 12:37 62 100 11/20/18 12:32 63 100 11/20/18 12:27 64 100 11/20/18 12:22 61 108/63 100 07/25/19 12:17 66 100 11/20/18 12:12 65 100 11/20/18 12:07 64 114/70 100 11/20/18 12:02 70 100 11/20/18 12:00 18 11/20/18 11:57 66 100 11/20/18 11:53 68 114/68 11/20/18 11:52 62 100 11/20/18 11:47 65 100 11/20/18 11:42 66 100 11/20/18 11:37 60 111/65 100 11/20/18 11:32 73 100 11/20/18 11:31 37.0 C 11/20/18 11:30 18 11/20/18 11:27 59 L 100 11/20/18 11:23 66 117/69 11/20/18 11:22 64 100 11/20/18 11:17 59 L 100 11/20/18 11:12 64 100 11/20/18 11:07 63 112/65 98 11/20/18 11:04 60 106/65 11/20/18 11:02 61 100 11/20/18 11:01 62 18 103/63 11/20/18 10:57 57 L 100 11/20/18 10:56 54 L 93/54 L 11/20/18 10:53 54 L 90/55 L 11/20/18 10:52 59 L 86/47 L 100 11/20/18 10:51 52 L 86/51 L 11/20/18 10:50 18 11/20/18 10:47 58 L 98 11/20/18 10:42 65 100 11/20/18 10:40 18 11/20/18 10:37 64 125/73 100 11/20/18 10:32 75 100 11/20/18 10:30 18 11/20/18 10:27 68 100 11/20/18 10:25 18 11/20/18 10:22 83 99 11/20/18 10:21 68 117/74 11/20/18 10:18 18 11/20/18 10:17 70 117/67 100 11/20/18 10:15 18 11/20/18 10:12 70 100 11/20/18 10:10 73 18 122/68 11/20/18 10:08 72 117/68 11/20/18 10:07 67 100 11/20/18 10:06 71 120/69 11/20/18 10:05 18 11/20/18 10:04 68 123/71 11/20/18 10:02 72 127/84 100 11/20/18 10:00 74 126/83 11/20/18 09:58 71 132/82 11/20/18 09:57 72 133/84 100 11/20/18 09:55 69 131/87 11/20/18 09:52 74 100 11/20/18 09:48 79 92 11/20/18 09:47 69 18 11/20/18 09:46 72 128/81 11/20/18 09:30 37.1 C 18 11/20/18 08:56 18 11/20/18 08:30 18 11/20/18 07:37 37.3 C 18 11/20/18 07:27 37.3 C 18
[2018-11-20] MEDS ORDERED: CALCIUM CARBONATE 500 MG CHEWABLE TAB PO PRN (16:39)
--- NOTE | 2018-11-20 16:44 | Obstetrical Progress Note ---
Date of Service November 20, 2018 Subjective Patient feels ctxs now, pain is 2-3/10 VE; 6/ 70%/ -2, engaged now ( had been ballotable) FHR categ I, moderate variability, categ II at mines with variable decels and minimal variability Continue to monitor closely Anticipate Results & Data Vital Signs (Past 12 Hours) Vital Signs Temp Pulse Resp BP Pulse Ox 11/20/18 16:39 69 124/75 11/20/18 16:37 70 100 11/20/18 16:32 78 100 11/20/18 16:27 78 100 11/20/18 16:22 61 107/57 L 100 11/20/18 16:17 63 100 11/20/18 16:12 61 99 11/20/18 16:08 62 121/58 L 11/20/18 16:07 60 99 11/20/18 16:02 58 L 99 11/20/18 16:00 20 11/20/18 15:57 67 100 11/20/18 15:52 64 102/58 L 99 11/20/18 15:47 71 100 11/20/18 15:42 60 100 11/20/18 15:38 62 116/61 11/20/18 15:37 65 100 11/20/18 15:32 59 L 100 11/20/18 15:30 20 11/20/18 15:27 62 100 11/20/18 15:23 66 112/68 11/20/18 15:22 66 100 11/20/18 15:17 64 100 11/20/18 15:12 71 100 11/20/18 15:07 73 112/67 100 11/20/18 15:02 67 100 11/20/18 15:00 36.6 C 20 11/20/18 14:57 65 100 11/20/18 14:53 68 118/70 11/20/18 14:52 68 100 11/20/18 14:47 66 100 11/20/18 14:42 80 99 11/20/18 14:38 69 114/69 11/20/18 14:37 80 100 11/20/18 14:32 60 100 11/20/18 14:30 18 11/20/18 14:27 66 100 11/20/18 14:22 63 116/65 100 11/20/18 14:17 69 100 11/20/18 14:12 66 100 11/20/18 14:07 72 113/73 100 11/20/18 14:02 61 99 11/20/18 14:00 18 11/20/18 13:57 72 99 11/20/18 13:52 69 113/70 99 11/20/18 13:47 65 98 11/20/18 13:42 64 98 11/20/18 13:37 73 104/60 98 11/20/18 13:32 74 98 11/20/18 13:30 37.1 C 18 11/20/18 13:27 58 L 98 11/20/18 13:24 57 L 107/60 11/20/18 13:22 58 L 98 11/20/18 13:17 68 99 11/20/18 13:12 67 99 11/20/18 13:07 71 110/63 99 11/20/18 13:02 72 100 11/20/18 13:00 18 11/20/18 12:57 67 100 11/20/18 12:52 61 117/67 100 11/20/18 12:47 59 L 98 11/20/18 12:42 60 100 11/20/18 12:38 58 L 118/64 11/20/18 12:37 62 100 11/20/18 12:32 63 100 11/20/18 12:27 64 100 11/20/18 12:22 61 108/63 100 11/20/18 12:17 66 100 11/20/18 12:12 65 100 11/20/18 12:07 64 114/70 100 11/20/18 12:02 70 100 11/20/18 12:00 18 11/20/18 11:57 66 100 11/20/18 11:53 68 114/68 11/20/18 11:52 62 100 11/20/18 11:47 65 100 11/20/18 11:42 66 100 11/20/18 11:37 60 111/65 100 11/20/18 11:32 73 100 11/20/18 11:31 37.0 C 11/20/18 11:30 18 11/20/18 11:27 59 L 100 11/20/18 11:23 66 117/69 11/20/18 11:22 64 100 11/20/18 11:17 59 L 100 11/20/18 11:12 64 100 11/20/18 11:07 63 112/65 98 11/20/18 11:04 60 106/65 11/20/18 11:02 61 100 11/20/18 11:01 62 18 103/63 11/20/18 10:57 57 L 100 11/20/18 10:56 54 L 93/54 L 11/20/18 10:53 54 L 90/55 L 11/20/18 10:52 59 L 86/47 L 100 11/20/18 10:51 52 L 86/51 L 11/20/18 10:50 18 11/20/18 10:47 58 L 98 11/20/18 10:42 65 100 11/20/18 10:40 18 11/20/18 10:37 64 125/73 100 11/20/18 10:32 75 100 11/20/18 10:30 18 11/20/18 10:27 68 100 11/20/18 10:25 18 11/20/18 10:22 83 99 11/20/18 10:21 68 117/74 11/20/18 10:18 18 11/20/18 10:17 70 117/67 100 11/20/18 10:15 18 11/20/18 10:12 70 100 11/20/18 10:10 73 18 122/68 11/20/18 10:08 72 117/68 11/20/18 10:07 67 100 11/20/18 10:06 71 120/69 11/20/18 10:05 18 11/20/18 10:04 68 123/71 11/20/18 10:02 72 127/84 100 11/20/18 10:00 74 126/83 11/20/18 09:58 71 132/82 11/20/18 09:57 72 133/84 100 11/20/18 09:55 69 131/87 11/20/18 09:52 74 100 11/20/18 09:48 79 92 11/20/18 09:47 69 18 100 11/20/18 09:46 72 128/81 11/20/18 09:30 37.1 C 18 11/20/18 08:56 18 11/20/18 08:30 18 11/20/18 07:37 37.3 C 18 11/20/18 07:27 37.3 C 18
[2018-11-20] MEDS ORDERED: HYDROCORTISONE ACETATE 25 MG SUPP PR PRN (18:43)
[2018-11-20] MEDS ORDERED: ACETAMINOPHEN 325 MG TAB PO PRN (18:43)
[2018-11-20] MEDS ORDERED: MEASLES, MUMPS & RUBELLA VIRUS VIAL SQ ONE (18:43)
[2018-11-20] MEDS ORDERED: SUPERCREAM 0.870% 15 GM JAR EXT PRN (18:43)
[2018-11-20] MEDS ORDERED: BENZOCAINE 20% AER SPR 82.5 GM CAN EXT PRN (18:43)
[2018-11-20] MEDS ORDERED: BISACODYL 10 MG SUPP PR PRN (18:43)
[2018-11-20] MEDS ORDERED: DIPHTHERIA/TETANUS/PERTUSSIS 0.5 ML SYR/VIAL IM ONE (18:43)
[2018-11-20] MEDS ORDERED: OXYCODONE/ACETAMINOPHEN 5mg/325mg TAB PO PRN (18:43)
--- NOTE | 2018-11-20 19:54 | Anesthesia Procedure Note ---
Date of Service November 20, 2018 Anesthesia Post Epidural Note Vital Signs Vital Signs: Temp Pulse Resp BP Pulse Ox 36.5 C 60 20 135/76 100 11/20/18 18:40 11/20/18 19:41 11/20/18 19:25 11/20/18 19:41 11/20/18 18:43 Pain Intensity Lower Abdomen: Pain Intensity: 0 Notes Mental Status: alert / awake / arousable Nausea / Vomiting: adequately controlled Pain: adequately controlled Airway Patency, RR, SpO2: stable & adequate BP & HR: stable & adequate Hydration State: stable & adequate Neuraxial Anesthesia: was administered and sensory block is resolving Anesthetic Complications: no major complications apparent and Pt Satisfied with anesthetic care Epidural: Removed without complications and With tip intact
[2018-11-20] MEDS: IBUPROFEN 600 MG TAB PO PRN (21:05)
[2018-11-21] MEDS: IBUPROFEN 600 MG TAB PO PRN ×4 (01:43→20:05)
--- NOTE | 2018-11-21 02:08 | Delivery Summary ---
DATE OF OPERATION: 11/20/2018 TIME OF DELIVERY OF BABY: 1816 hours. TIME OF DELIVERY OF PLACENTA: 1838 hours. DETAILS OF DELIVERY: The patient was found to be fully dilated and desired to push. She pushed for about 15 minutes and the head was over perineum. Her perineal muscles and skin were tight and intact holding the head from delivery. Baby was having decelerations off and on and suspected macrosomia. So after verbal consent was obtained, a right mediolateral episiotomy was opened and baby's head was delivered right after. Shoulders were delivered with minimal traction. Baby was handed off to the mother where mouth and nose were suctioned. Cord was clamped x2 and cut, it was a 3-vessel cord. Cord blood was obtained. The baby was taken by nursery team. Then the vagina and perineum were checked for lacerations. There was a right medial lateral episiotomy which was opened earlier. Rectal exam was done and confirmed to be second-degree and good sphincter tone was noted. The gloves were changed. It was repaired with 3-0 Vicryl in a running fashion bringing the vaginal mucosa together, bulbocavernous muscles, perineal body muscles together and the skin in a subcuticular fashion. Excellent hemostasis was achieved. Rest of the vagina and perineum were intact. Rectal exam was repeated. No sutures were felt. Gloves were changed. Placenta was found to be in the vagina, delivered spontaneous as intact and complete. Fundus was firm. EBL was 200 ml. Mom and baby tolerated the procedure well. Sponge, lap, needle count was correct x2. Baby was a viable male . Apgars 6, 7 and 9 at 1, 5, and 10 minutes. Weight was 10 pounds 7 ounces, 4730 gr. No complications happened and I was present during whole procedure. I attest to the content of the Intraoperative Record and any orders documented therein. Any exceptions are noted below. ENEDINAD
[2018-11-21 06:51] LABS: Hemoglobin 9.5 g/dL (12.0-16.0); Mean Corpuscular Hgb Conc 33.9 g/dL (32-36); Mean Corpuscular Volume 84.3 fL (80-100); Mean Platelet Volume 10.6 fL (7.4-10.4); Platelet Count 230 K/uL (130-400); RDW Coefficient of Variation 13.3 % (11.5-14.5); RDW Standard Deviation 40.5 fL (36.4-46.3); Red Blood Count 3.32 M/uL (4.2-5.4); White Blood Count 18.52 K/uL (4.8-10.8)
[2018-11-21] MEDS: FERROUS SULFATE 325 MG TAB PO SCH (08:24)
[2018-11-21] MEDS: PRENATAL VITAMIN 1 TAB PO SCH (08:24)
[2018-11-21] MEDS: DOCUSATE SODIUM 100 MG CAP PO SCH ×3 (08:25→20:12)
--- NOTE | 2018-11-21 15:42 | Obstetrical Progress Note ---
Date of Service November 21, 2018 Subjective doing fine out of bed and tolerating diet Physical Exam Constitutional: WD/WN, vitals as above comfortable no bleeding abdomen soft for discharge in AM Results & Data Vital Signs (Past 12 Hours) Vital Signs Temp Pulse Resp BP Pulse Ox 11/21/18 13:25 36.5 C 70 18 107/68 98 11/21/18 08:45 36.8 C 64 18 104/67 97 11/21/18 03:41 37.1 C 67 20 125/78 Laboratory Results Laboratory Results - last 72 hr 11/20/18 11/20/18 11/20/18 08:15 08:35 08:44 WBC 16.42 H RBC 3.82 L Hgb 11.3 L Hct 32.8 L MCV 85.9 MCH 29.6 MCHC 34.5 RDW Std Deviation 42.0 RDW Coeff of Magaly 13.5 Plt Count 304 MPV 10.5 H Sodium 138 Potassium 3.9 Chloride 112 H Carbon Dioxide 17 L Anion Gap 9.0 BUN 9 Creatinine 0.77 Est Cr Clr Drug Dosing 128.9 Est GFR ( Amer) 118.4 Est GFR (Non-Af Amer) 102.2 BUN/Creatinine Ratio 12.1 Glucose 85 POC Glucose 90 Calcium 9.4 Total Bilirubin 0.3 AST 23 ALT 41 Alkaline Phosphatase 296 H Total Protein 6.9 Albumin 2.7 L Globulin 4.2 H Albumin/Globulin Ratio 0.6 L 11/20/18 11/20/18 11/20/18 10:39 12:29 14:34 WBC RBC Hgb Hct MCV MCH MCHC RDW Std Deviation RDW Coeff of Magaly Plt Count MPV Sodium Potassium Chloride Carbon Dioxide Anion Gap BUN Creatinine Est Cr Clr Drug Dosing Est GFR ( Amer) Est GFR (Non-Af Amer) BUN/Creatinine Ratio Glucose POC Glucose 125 H 78 63 L* Calcium Total Bilirubin AST ALT Alkaline Phosphatase Total Protein Albumin Globulin Albumin/Globulin Ratio 11/20/18 11/20/18 11/20/18 14:53 16:54 21:47 WBC RBC Hgb Hct MCV MCH MCHC RDW Std Deviation RDW Coeff of Magaly Plt Count MPV Sodium Potassium Chloride Carbon Dioxide Anion Gap BUN Creatinine Est Cr Clr Drug Dosing Est GFR ( Amer) Est GFR (Non-Af Amer) BUN/Creatinine Ratio Glucose POC Glucose 71 85 43 L* Calcium Total Bilirubin AST ALT Alkaline Phosphatase Total Protein Albumin Globulin Albumin/Globulin Ratio 11/21/18 06:27 WBC 18.52 H RBC 3.32 L Hgb 9.5 L Hct 28.0 L MCV 84.3 MCH 28.6 MCHC 33.9 RDW Std Deviation 40.5 RDW Coeff of Magaly 13.3 Plt Count 230 MPV 10.6 H Sodium Potassium Chloride Carbon Dioxide Anion Gap BUN Creatinine Est Cr Clr Drug Dosing Est GFR ( Amer) Est GFR (Non-Af Amer) BUN/Creatinine Ratio Glucose POC Glucose Calcium Total Bilirubin AST ALT Alkaline Phosphatase Total Protein Albumin Globulin Albumin/Globulin Ratio
[2018-11-21] MEDS ORDERED: BISACODYL 5 MG TABEC PO SCH (20:00)
[2018-11-22 06:54] LABS: Hematocrit (blood only) 27.6 % (37-47); Hemoglobin 9.6 g/dL (12.0-16.0)
[2018-11-22] MEDS: DOCUSATE SODIUM 100 MG CAP PO SCH (08:27)
[2018-11-22] MEDS: IBUPROFEN 600 MG TAB PO PRN ×2 (08:27→16:34)
[2018-11-22] MEDS: PRENATAL VITAMIN 1 TAB PO SCH (08:27)
[2018-11-22] MEDS: FERROUS SULFATE 325 MG TAB PO SCH (08:27)
--- NOTE | 2018-11-22 09:51 | Obstetrical Progress Note ---
Date of Service November 22, 2018 Subjective Patient is seen and examined. She feels well, no complaints. Ambulating without dizziness Voiding without difficulty Tolerating regular diet with out N&V Bleeding is minimal No fever/ chills/ CP/ SOB/ N&V/ Leg pain Breast feeding/ pumping without problems Baby is in nursery, having IV glucose, will be d/c'd tomorrow Vital Signs Temp Pulse Resp BP Pulse Ox 11/21/18 16:10 36.9 C 70 20 112/66 11/21/18 13:25 36.5 C 70 18 107/68 98 11/22/18 Range/Units 06:37 Hgb 9.6 L (12.0-16.0) g/dL Hct 27.6 L (37-47) % PE: General: Alert, orientedx3, NAD Abd: soft, NT, fundus firm, below Umbilicus Perineum intact, Lochia rubra minimal Ext; NT, no edema AP: 33 yo s/p , ppd# 2 VSS Afebrile doing well Continue routine care All questions were answered Discussed when to call D/C nesting, f/u in office
[2018-11-22] MEDS ORDERED: MEASLES, MUMPS & RUBELLA VIRUS VIAL SQ ONE (17:08)
== END 2018-11-22 18:10 | disposition home or self-care (01) | DRG 807 ==
LOC: OPB 07:10 → 4S1 07:12 → 4S2 20:50